=== PATIENT | female | born 1965 | race Caucasian/White ===

== ENCOUNTER 2016-09-13 13:00 | Emergency (ER) | payer OTHER ==
[2016-09-13 13:08] VITALS: RESP 18; TEMP 97.9; O2SAT 96
[2016-09-13] MEDS ORDERED: NS 1,000 ML IV ONE (13:43)
--- NOTE | 2016-09-13 13:51 | EDPHY ---
H & P Time Seen by Provider: 09/13/16 13:25 HPI/ROS: CHIEF COMPLAINT: Left flank pain HISTORY OF PRESENT ILLNESS: This 51-year-old woman has had a hysterectomy. She presents with left flank pain for the past 4 weeks. She saw her urologist Dr. Correia on August 22 who did urinalysis and a noncontrast CT scan. I reviewed the report which the patient brought with her, which was negative. No evidence for renal colic or other abnormalities. She did see urgent care last week on Sunday and had an x-ray and urinalysis. The x-ray report was reviewed by myself which showed some degenerative disease but no fracture. She did see her primary care practice this last week on Sunday and saw Dr. Elias Mckeon is her regular physician was out of the office. He started her on oral antibiotics for possible diverticulitis but she presents continuing to have pain especially in the left side. It does not radiate. It is in the flank and anterior abdomen. It is not associated with vomiting or diarrhea or urinary symptoms. No fever or chills. No vomiting, normal appetite, no black or bloody stools. She did have diarrhea for 2 weeks and then it got better after started taking the antibiotics on Sunday. No recent foreign travel. She has been taking approximately 600 mg oral ibuprofen every 6-8 hours with only intermittently. REVIEW OF SYSTEMS: Eye: no change in vision ENT: no sore throat Cardiac: no chest pain or syncope Pulmonary: no cough or SOB Abdomen: HPI Musculoskeletal: HPI, no recent fall or trauma. Skin: no rash Neuro: no headache, no weakness or numbness in extremities. Constitutional: no fever : no urinary symptoms A comprehensive 10 point review of systems is otherwise negative aside from elements mentioned in the history of present illness. PAST MEDICAL HISTORY: Includes kidney stones, hysterectomy, breast cancer with lumpectomy on the right, cholecystectomy, endometriosis, basal cell cancer. Primary care is Terri Damon. Social history: Nonsmoker. Father had renal cell cancer. No alcohol. General Appearance: Alert and conversant, cooperative. Eyes: No scleral icterus. ENT, Mouth: Normal mucous membranes. Respiratory: Normal respiratory effort, breath sounds equal, lungs are clear to auscultation. Cardiovascular: Regular rate and rhythm. Gastrointestinal: Left upper and left lower quadrant tenderness to palpation without rebound or guarding. Not distended, bowel sounds present. Neurological: Alert and oriented x3. Normally conversant. Face symmetric, normal movement and sensation in all extremities. Skin: Warm and dry, no rashes. No zoster. Musculoskeletal: No peripheral edema and no joint swelling. Psychiatric: Not agitated. Emergency Department course/MDM: CT abdomen pelvis with IV contrast discussed and consented. Patient does not have chest pain or shortness of breath. Is not hypoxic. Does not have tachycardia and I think acute coronary syndrome or pulmonary embolism or pneumonia is unlikely. 1432: Lipase noted to be elevated at 824. Results including CT and lipase level discussed with patient at this time. Discussed with Nohemi in detail including elevated lipase level and CT results. Asked for advice, he recommends supportive care and not admission. Discussed in detail with the patient who apparently has seen Dr. Song in the past and she states understanding and is comfortable with this outpatient treatment plan. She is warned that although malignancy cannot be 100% excluded at this time, there is nothing in her ED evaluation today the suggest that this is likely. Smoking Status: Never smoked Constitutional: Initial Vital Signs Temperature (C) 36.6 C 09/13/16 13:03 Heart Rate 88 09/13/16 13:03 Respiratory Rate 18 09/13/16 13:03 Blood Pressure 123/62 H 09/13/16 13:03 O2 Sat (%) 96 09/13/16 13:03 O2 Delivery Mode Room Air Allergies/Adverse Reactions: Penicillins Allergy (Severe, Verified 09/13/16 13:08) Hives Home Medications: Medication Instructions Recorded Advil 09/13/16 VITAMIN D 09/13/16 Vitamin B Complex 09/13/16 Zyrtec 09/13/16 oxyCODONE/APAP 5/325 [Percocet] 1 tab PO Q4-6PRN PRN #11 tab 09/13/16 Medical Decision Making - Diagnostics EKG Interpretation: 12-lead EKG interpreted by me; official reading is in trace master. My interpretation is sinus rhythm 83 no ischemic changes. Imaging: CT viewed by myself and reviewed with Dr. Meier at 2:25 p.m. shows left-sided mesenteric inflammation in the pelvis but no other acute abnormalities. Specifically no pancreatic inflammation is seen. No pelvic or ovarian masses seen. Differential Diagnosis: Differential considered including but not limited to renal colic, renal cell carcinoma, renal infarct, diverticulitis, pancreatitis, mesenteric adenitis, vascular occlusion or dissection, urinary infection. Consult/Admit Bed Type: [place] [id number] - Data Points Laboratory Results: Laboratory Results 09/13/16 13:27 09/13/16 13:27 09/13/16 09/13/16 13:55 13:27 WBC 7.87 10^3/uL (3.80-9.50) RBC 4.82 10^6/uL (4.18-5.33) Hgb 14.3 g/dL (12.6-16.3) Hct 43.0 % (38.0-47.0) MCV 89.2 fL (81.5-99.8) MCH 29.7 pg (27.9-34.1) MCHC 33.3 g/dL (32.4-36.7) RDW 12.0 % (11.5-15.2) Plt Count 222 10^3/uL (150-400) MPV 9.9 fL (8.7-11.7) Neut % (Auto) 63.5 % (39.3-74.2) Lymph % (Auto) 27.4 % (15.0-45.0) [place] % (Auto) 5.5 % (4.5-13.0) Eos % (Auto) 2.7 % (0.6-7.6) Baso % (Auto) 0.6 % (0.3-1.7) Nucleat RBC Rel Count 0.0 % (0.0-0.2) Absolute Neuts (auto) 5.00 10^3/uL (1.70-6.50) Absolute Lymphs (auto) 2.16 10^3/uL (1.00-3.00) Absolute Monos (auto) 0.43 10^3/uL (0.30-0.80) Absolute Eos (auto) 0.21 10^3/uL (0.03-0.40) Absolute Basos (auto) 0.05 10^3/uL (0.02-0.10) Absolute Nucleated RBC 0.00 10^3/uL (0-0.01) Immature Gran % 0.3 % (0.0-1.1) Immature Gran # 0.02 10^3/uL (0.00-0.10) Sodium 145 H mEq/L (134-144) Potassium 4.1 mEq/L (3.5-5.2) Chloride 105 mEq/L (97-110) Carbon Dioxide 27 mEq/l (22-31) Anion Gap 13 mEq/L (8-16) BUN 23 mg/dL (7-23) Creatinine 1.0 mg/dL (0.6-1.0) Estimated GFR 59 Glucose 101 H mg/dL (70-100) Calcium 9.7 mg/dL (8.5-10.4) Total Bilirubin 0.5 mg/dL (0.1-1.4) Conjugated Bilirubin 0.2 mg/dL (0.0-0.5) Unconjugated Bilirubin 0.3 mg/dL (0.0-1.1) AST 35 IU/L (14-46) ALT 39 IU/L (9-52) Alkaline Phosphatase 103 IU/L (38-126) Total Protein 7.6 g/dL (6.3-8.2) Albumin 4.2 g/dL (3.5-5.0) Lipase 824.0 H IU/L (23-300) Urine Color YELLOW Urine Appearance CLEAR Urine pH 5.0 (5.0-7.5) Ur Specific [place] 1.013 (1.002-1.030) Urine Protein NEGATIVE (NEGATIVE) Urine Ketones NEGATIVE (NEGATIVE) Urine Blood NEGATIVE (NEGATIVE) Urine Nitrate NEGATIVE (NEGATIVE) Urine Bilirubin NEGATIVE (NEGATIVE) Urine Urobilinogen NEGATIVE EU (0.2-1.0) Ur Leukocyte Esterase TRACE H (NEGATIVE) Urine RBC 5-10 H /hpf (0-3) Urine WBC 1-3 /hpf (0-3) Ur Epithelial Cells TRACE /lpf (NONE-1+) Urine Mucus TRACE /lpf (NONE-1+) Ur Culture Indicated? NOT INDICATED (NI) Urine Glucose NEGATIVE (NEGATIVE) Medications Given: Discontinued Medications Sodium Chloride (Ns) 1,000 mls @ 0 mls/hr IV ONCE ONE PRN Reason: Wide Open Stop: 09/13/16 13:44 Last Admin: 09/13/16 13:50 Dose: 1,000 mls Departure - Departure Disposition: Home, Routine, Self-Care Clinical Impression: mesenteric inflammation Condition: Good Instructions: Oxycodone/Acetaminophen (By mouth), Abdominal Pain (ED) Additional Instructions: Okay to stop your antibiotics. Increase oral fluid intake. Return for fever or severe pain, vomiting, or new symptoms. Please follow-up in the office with Dr. Song. Referrals: Terri Damon MD [Primary Care Provider] - As per Instructions Prescriptions: oxyCODONE/APAP 5/325 [Percocet] 1 tab PO Q4-6PRN PRN #11 tab PRN Reason: Pain
[2016-09-13 13:53] LABS: % IMMATURE GRANULYOCYTES 0.3 % (0.0-1.1); ABSOLUTE IMMATURE GRANULOCYTES 0.02 10^3/uL (0.00-0.10); ADD DIFF? NO; ADD MORPH? NO; ADD SCAN? NO; ATYPICAL LYMPHOCYTE FLAG 20 (0-99); FRAGMENT RBC FLAG 10 (0-99); HEMOGLOBIN 14.3 g/dL (12.6-16.3); LEFT SHIFT FLG 0 (0-99); LIPEMIA HEMOLYSIS FLAG 80 (0-99); MEAN CELL HEMOGLOBIN 29.7 pg (27.9-34.1); MEAN CELL HEMOGLOBIN CONCENTR. 33.3 g/dL (32.4-36.7); MEAN CELL VOLUME 89.2 fL (81.5-99.8); MEAN PLATELET VOLUME 9.9 fL (8.7-11.7); PLATELET CLUMPS FLAG 10 (0-99); PLATELET COUNT 222 10^3/uL (150-400); RED BLOOD CELL COUNT 4.82 10^6/uL (4.18-5.33)
[2016-09-13] MEDS ORDERED: IOPAMIDOL (ISOVUE-300) 50 ML VIAL IV ONE (13:55)
[2016-09-13 14:02] LABS: COLOR YELLOW; LEUKOCYTE ESTERASE,URINE TRACE (NEGATIVE); NITRITE,URINE NEGATIVE (NEGATIVE)
[2016-09-13 14:09] LABS: MUCUS TRACE /lpf (NONE-1+)
[2016-09-13 14:17] LABS: ANION GAP 13 mEq/L (8-16); CALCIUM 9.7 mg/dL (8.5-10.4); CARBON DIOXIDE 27 mEq/l (22-31); CHLORIDE 105 mEq/L (97-110); GLOMERULAR FILTRATION RATE 59; GLUCOSE 101 mg/dL (70-100); POTASSIUM 4.1 mEq/L (3.5-5.2); SODIUM 145 mEq/L (134-144)
--- NOTE | 2016-09-13 14:21 | CPEKG ---
Heart Rate: 83 RR Interval: 723 P-R Interval: 156 QRSD Interval: 92 QT Interval: 364 QTC Interval: 428 P [place]: 59 QRS [place]: 80 T Wave [place]: 33 EKG Severity - NORMAL ECG - EKG Impression: SINUS RHYTHM Electronically Signed By: Kuldip Enciso 13-Sep-2016 14:34:22
--- NOTE | 2016-09-13 14:31 | CT ---
CT Scan of the Abdomen and Pelvis (With Contrast) at 1411 hours History: Left lower quadrant abdominal pain. Acute pancreatitis. History of breast cancer. Technique: Axial computed tomographic images of the abdomen and pelvis were obtained with the unevent ful intravenous administration of 90 mL Isovue-300 contrast. No oral or rectal contrast, which limits the study. Dose reduction techniques were utilized. CT Abdomen Findings: Lung bases: Normal. Liver: Normal. Biliary system: Gallbladder is surgically absent. Spleen: Normal. Pancreas: Normal. Adrenals: Normal. Kidneys: No obstruction or solid masses. Abdominal Aorta: No aneurysm. No bowel obstruction, ascites, or significant retroperitoneal lymphadenopathy. CT Pelvis Findings: 2 x 1 cm region of minimal inflammation in the mesentery anterior midpelvis midli ne just anterosuperior to the bladder, on axial image 244 series 4, and adjacent to the small bowel w ithout evidence of inflammation of the rectosigmoid colon or small bowel. No drainable abscess or pne umoperitoneum. No bowel obstruction. No significant adenopathy. No destructive osseous lesions. Impression: 1. Mild inflammation of the mesentery anterior to the bladder in the midpelvis, which is nonspecific without drainable abscess or fluid collection. 2. No bowel obstruction, diverticulitis, or significant adenopathy. 3. Prior cholecystectomy. 4. No definite hepatic metastasis. Findings and recommendations discussed with Emergency Department physician, Dr. Kuldip Enciso, at 1420 ho urs today. Final report concurs with initial preliminary interpretation.
[2016-09-13 15:06] LABS: ALBUMIN 4.2 g/dL (3.5-5.0); BILIRUBIN,TOTAL 0.5 mg/dL (0.1-1.4); BILIRUBIN-CONJUGATED 0.2 mg/dL (0.0-0.5); BILIRUBIN-UNCONJUGATED 0.3 mg/dL (0.0-1.1); TOTAL PROTEIN 7.6 g/dL (6.3-8.2)
[2016-09-13 15:33] VITALS: BP 112/74; PULSE 76
== END 2016-09-13 15:33 | disposition home or self-care (01) ==
DX: K65.4 Sclerosing mesenteritis (principal); Z85.3 Personal history of malignant neoplasm of breast; Z90.710 Acquired absence of both cervix and uterus
CPT/HCPCS: Q9967

== ENCOUNTER → 2016-09-29 | Outpatient (CLI) | payer OTHER ==
--- NOTE | 2016-09-29 11:15 | US ---
Transabdominal and Transvaginal Pelvic Ultrasound History: 51 year-old with left lower quadrant pain for 2 months. Prior hysterectomy. Comparison: CT abdomen pelvis September 13, 2016. Findings: Transabdominal: The uterus is surgically absent. The ovaries are not visible. The bladder is normal. Transvaginal: The left ovary measures 2.8 x 1.3 x 2.7 cm. The right ovary measures 1.9 x 1.7 x 2.0 cm . No adnexal masses are identified. Normal arterial blood flow is documented to both ovaries by Dopp ler ultrasound. There is no free fluid. Impression: Normal pelvic ultrasound.
== END ==
LOC: FIMAGING 08:45
PROVIDERS: ATTEND Family Medicine
DX: R10.814 Left lower quadrant abdominal tenderness (principal); Z90.710 Acquired absence of both cervix and uterus

== ENCOUNTER → 2016-10-05 | Outpatient (CLI) | payer OTHER ==
--- NOTE | 2016-10-05 20:55 | MR ---
MRI of the Lumbar Spine (Without Contrast) History: Low back pain. Comparison: Lumbar spine radiographs September 10, 2014, CT abdomen and pelvis September 13, 2016. Technique: Sagittal and axial T1 and T2 , and sagittal STIR MR sequences of the lumbar spine, withou t contrast. Findings: Alignment of the lumbar spine is normal. The conus medullaris appears normal and ends at T12-L1. Probable hemangioma is noted in the superior aspect of T12. Disk desiccation is present at L3-L4 and L4-L5. Tarlov cysts are noted at S2. L1-L2: Mild annular bulge, with no significant spinal canal narrowing or neural foraminal stenosis. L2-L3: Mild annular bulge and minimal facet and ligamentum flavum hypertrophy, with no significant s mary beth canal narrowing or neural foraminal stenosis. L3-L4: Minimal vertebral spondylosis, with mild annular bulge and mild facet and ligamentum flavum h ypertrophy, with no significant spinal canal narrowing and minimal right neural foraminal stenosis. L4-L5: Minimal vertebral spondylosis, with a minimal annular bulge and mild to moderate facet and li gamentum flavum hypertrophy, with mild spinal canal narrowing and mild bilateral neural foraminal amara nosis. L5-S1: Mild facet hypertrophy, with no significant spinal canal narrowing or neural foraminal stenos is. Impressions 1. Mild multilevel degenerative change, most prominent at L4-L5, with no definite etiology for the p atient's pain. 2. Tarlov cysts in the sacrum. 3. Please see above findings at specific disk levels.
== END ==
LOC: FIMAGING 18:36
PROVIDERS: ATTEND Family Medicine
DX: G54.8 Other nerve root and plexus disorders (principal); M51.36 Other intervertebral disc degeneration, lumbar region

== ENCOUNTER → 2016-10-12 | Outpatient (CLI) | payer OTHER ==
--- NOTE | 2016-10-12 14:43 | MA ---
CORRECTED ORDER Screening Digital Mammogram With Tomosynthesis Clinical Indications: Routine screening. Personal history of right breast cancer. Technique: Standard digital cephalocaudal and tomosynthesis mediolateral oblique projections are obtained. The digital images were processed by the [email or web address] computer aided detection system. Comparison: October 2015, November 2014, November 2013 and January 2013 Breast density: B; There are scattered fibroglandular densities. Findings: CAD was reviewed. No suspicious findings are identified. There are expected post therapeutic changes in the right breast. Impression: Negative mammogram. BI-RADS 1. Recommendation: Routine screening is recommended in one year. [facility] will send a result letter to the patient. Negative mammography should not preclude additional workup of a clinically suspicious finding. The patient's information is entered into a reminder system with a target due date for her next mammogram. [facility]
== END ==
LOC: FIMAGING 13:54
DX: Z12.31 Encounter for screening mammogram for malignant neoplasm of breast (principal); Z85.3 Personal history of malignant neoplasm of breast
CPT/HCPCS: G0202

== ENCOUNTER → 2017-04-18 | Outpatient (CLI) | payer OTHER ==
[~2017-04-18] MED LIST: GADOBUTROL 10 ML VIAL IVP ONE
== END ==
LOC: FIMAGING 18:36
PROVIDERS: ATTEND Orthopaedic Surgery
DX: Z86.018 Personal history of other benign neoplasm (principal); M76.891 Other specified enthesopathies of right lower limb, excluding foot; M76.01 Gluteal tendinitis, right hip; Z98.890 Other specified postprocedural states
CPT/HCPCS: A9585

== ENCOUNTER → 2017-10-15 | Outpatient (CLI) | payer OTHER | LOC: FIMAGING 12:09 | PROVIDERS: ATTEND Internal Medicine Hematology & Oncology | DX: Z12.31 Encounter for screening mammogram for malignant neoplasm of breast (principal); Z85.3 Personal history of malignant neoplasm of breast ==

== ENCOUNTER → 2018-01-30 | Outpatient (CLI) | payer OTHER | LOC: FIMAGING 12:52 | PROVIDERS: ATTEND Surgery | DX: R22.42 Localized swelling, mass and lump, left lower limb (principal); Z85.3 Personal history of malignant neoplasm of breast ==

== ENCOUNTER → 2018-03-01 | Outpatient (CLI) | payer OTHER | LOC: FIMAGING 07:58 | PROVIDERS: ATTEND Surgery | DX: R22.42 Localized swelling, mass and lump, left lower limb (principal) ==

== ENCOUNTER → 2018-10-23 | Outpatient (CLI) | payer OTHER | LOC: FIMAGING 13:05 | PROVIDERS: ATTEND Internal Medicine Hematology & Oncology | DX: Z12.31 Encounter for screening mammogram for malignant neoplasm of breast (principal); Z85.3 Personal history of malignant neoplasm of breast ==